=== PATIENT | female | born 1995 | race American Indian/Alaskan Native ===

== ENCOUNTER 2017-05-04 13:29 | Outpatient (CLI) | payer OTHER ==
[2017-05-04] MEDS ORDERED: LACTATED RINGERS 500 ML IV ONE (14:05)
[2017-05-04 14:06] VITALS: BP 115/74
[2017-05-04 14:48] LABS: Bilirubin,Urine NEG (Negative); Blood,Urine NEG (Negative); Color,Urine Straw (Yellow); Nitrite,Urine NEG (Negative); Protein,Urine <15 mg/dL mg/dL (Negative); Urobilinogen,Urine < 2.0 mg/dL (<2.0)
[2017-05-04 14:53] LABS: Amphetamine Screen,Urine PRESUMPTIVE NEGATIVE; Benzodiazepines Screen,Urine PRESUMPTIVE NEGATIVE; Cocaine Screen,Urine PRESUMPTIVE NEGATIVE; Methadone Screen,Urine PRESUMPTIVE NEGATIVE; Opiate Screen,Urine PRESUMPTIVE NEGATIVE
[2017-05-04 15:07] LABS: Cannabinoid Screen,Urine PRESUMPTIVE POSITIVE
--- NOTE | 2017-05-04 16:44 | Ultrasound Report ---
FINAL REPORT EXAM: US OB > = 14 WEEKS FETUS HISTORY: COMPLETE OB TECHNIQUE: Ultrasound obstetrical transabdominal PRIORS: No prior studies are submitted for comparison FINDINGS: Single live intrauterine gestation present cardiac activity is present with heart rate of 152 beats per minute The placenta is posterior and grade 1 Amniotic fluid volume is adequate amniotic fluid index 15.7 centimeters Following structures seen appear grossly unremarkable, cisterna magna, ventricles and cerebellum, stomach, kidneys, urinary bladder, diaphragm, four-chamber view of the heart, three-vessel cord and cord insert. biometric measurements were obtained Biparietal diameter 28 weeks 4 days Head circumference 27 weeks 6 days Abdominal circumference 27 weeks 5 days Femur length 27 weeks 2 days Based on today's exam estimated weight is 1103 grams Based on today's exam estimated gestational age 27 weeks 6 days with estimated date of delivery July 28, 2017 IMPRESSION:
== END 2017-05-04 17:03 | disposition home or self-care (01) ==
LOC: TRG 13:29
PROVIDERS: ATTEND Obstetrics & Gynecology
DX: O47.03 False labor before 37 completed weeks of gestation, third trimester (principal); Z3A.29 29 weeks gestation of pregnancy
CPT/HCPCS: 59025; 76805; 80307; 81001; 86850; 86900; 86901

== ENCOUNTER 2017-06-22 17:04 | Observation (INO) | payer OTHER ==
[2017-06-22] MEDS ORDERED: LACTATED RINGERS 1,000 ML IV ONE (17:45)
[2017-06-22] MEDS ORDERED: LACTATED RINGERS 1,000 ML ONE (17:47)
--- NOTE | 2017-06-22 18:41 | Ultrasound Report ---
FINAL REPORT PROCEDURE: US OB LIMITED TECHNIQUE: Real-time transabdominal sonography of the uterus, placenta, amniotic fluid, adnexa, and fetus was performed with image documentation. Targeted ultrasound for presentation, NEPTALI, and heart rate. CPT 76214 HISTORY: Deceleration. well being. COMPARISON: Ultrasound dated 05/04/2017. FINDINGS: LMP 10/12/2016. Clinical age: 36 weeks 1 day. EDC: 07/19/2017. GENERAL: IUP: Single living intrauterine . Position: Cephalic. Amniotic fluid volume: 11.8 cm. FETUS: Heart rate and rhythm: 129 BPM, Regular. anatomic survey: Not performed. IMPRESSION: Targeted ultrasound for presentation, NEPTALI, and heart rate. Cephalic presentation. Normal NEPTALI.
--- NOTE | 2017-06-22 18:43 | Ultrasound Report ---
FINAL REPORT PROCEDURE: US OB BPP WO NON-STRESS TECHNIQUE: Sonographic evaluation for breathing, movement, tone, and amniotic fluid volume was performed. CPT 36144 HISTORY: Deceleration, well being. COMPARISON: Targeted ultrasound dated same day and time. Obstetric ultrasound dated 05/04/2017. FINDINGS: LMP 10/12/2016. Clinical age: 36 weeks 1 day. EDC: 07/19/2017. GENERAL: IUP: Single living intrauterine . Position: Cephalic. Amniotic fluid volume: 11.8 cm. Amniotic fluid volume: Normal-score 2. At least one vertical pocket > 2 cm or more in vertical axis. breathing: Normal-score 2. movement: Normal-score 2. tone: Normal. Score: 8 of 8. IMPRESSION: Normal biophysical profile. Score 8/8.
--- NOTE | 2017-06-22 19:48 | History and Physical Report ---
<FAREED JACOB D - Last Filed: 06/23/17 07:55> History of Present Illness Date of admission: 06/22/17 20:42 Medications and Allergies Allergies Allergy/AdvReac Type Severity Reaction Status Date / Time Penicillins AdvReac Anaphylaxis Verified 06/22/17 20:48 Home Medications Medication Instructions Recorded Confirmed Last Taken Type Pnv,Calcium 72/Iron/Folic Acid 1 tab PO DAILY 05/04/17 06/22/17 06/22/17 History [Pnv Plus Multivit Tab] Active Meds: Active Medications Acetaminophen (Tylenol) 650 mg PO Q4H PRN PRN Reason: Pain MILD(1-3)/Fever >100.5/LYNCH Docusate Sodium (Colace) 100 mg PO Q12H PRN PRN Reason: Constipation Lactated Ringer's (Lactated Ringers) 1,000 mls @ 125 mls/hr IV DIRECT MARKEL Lactated Ringer's (Lactated Ringers) 1,000 mls @ 125 mls/hr IV DIRECT MARKEL Last Admin: 06/23/17 04:45 Dose: 125 mls/hr Magnesium Hydroxide (Milk Of Magnesia) 30 ml PO QHS PRN PRN Reason: Laxative Effect Multivitamins/Iron/Calcium ( Vitamin) 1 each PO QDAY MARKEL - Vital Signs Vital signs: Vital Signs Pulse BP 84 107/62 06/22/17 17:38 06/22/17 17:38 Temp Pulse Resp BP Pulse Ox 98.7 F 79 12 109/61 97 06/23/17 04:49 06/23/17 04:53 06/23/17 04:49 06/23/17 04:53 06/22/17 19:04 Results Result Diagrams: 06/22/17 18:50 Abnormal lab results 06/22/17 06/22/17 Range/Units 18:50 20:33 Pine % (Auto) 11.2 H (0.0-7.3) % Pine # 0.9 H (0.0-0.8) K/mm3 Seg Neutrophils % 72.6 H (40.0-70.0) % Urine pH 8.0 H (5.0-7.0) All other labs normal. Assessment and Plan Admit for obervation - Patient Problems (1) Insufficient care in third trimester Status: Acute (2) Marijuana smoker Status: Acute (3) Small for gestational age fetus Status: Acute <LUX ALAS - Last Filed: 06/23/17 12:15> History of Present Illness Date of examination: 06/22/17 History of present illness: Patient seen in office today of admission follow-up to complicated with intrauterine growth retardation and noncompliance with office visit and noncompliance with visits to the perinatologist. NST in office revealed decelerations the patient was admitted for evaluation including obtaining a biophysical profile Menstrual History Regularity: regular Menses every: 30 days Duration: 4 LMP: 10/26/2016 LMP reliability: definite test type: urine test Date: 04/03/2017 BC at conception: none Planned ? no EDC Calculations LMP: 08/02/2017 Past History : 2 Term Births: 0 Premature Births: 1 Living Children: 1 Para: 1 Mult. Births: 0 Prev : 0 Aborta: 0 Elect. Ab: 0 Spont. 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 No ETOH/Cigaretts Infection History Hx of STD: none HIV Risk Eval: no Hepatitis B Risk Eval: low risk Personal hx. of genital herpes: no Partner hx. of genital herpes: no Rash, Viral, or Febrile illness since last LMP? no Varicella/Chicken Pox Status: Immunized TB Risk: no Genetic History Congenital Heart Defect: Mom: no Dad: no Austyn Disease: Mom: no Dad: no Thalassemia Mom: no Dad: no Neural Tube Defect Mom: no Dad: no Down's Syndrome Mom: no Dad: no Ilya-Sachs Mom: no Dad: no Sickle Cell Disease/Trait Mom: no Dad: no Hemophilia Mom: no Dad: no Muscular Dystrophy Mom: no Dad: no Cystic Fibrosis Mom: no Dad: no [place] Chorea Mom: no Dad: no Mental Retardation Mom: no Dad: no Fragile X Mom: no Dad: no Other Genetic/Chromosomal Disorder Mom: no Dad: no Child w/other defect Mom: no Dad: no Enviromental Exposures Xray Exposure: no Medication, drug, or alcohol use since LMP: no Chemical/Other Exposure: no Exposure to Cat Liter: no Hx of Parvovirus (Fifth Disease): no Occupational Exposure to Children: none Active Medications (reviewed today): None Current Allergies (reviewed today): No known allergies Past History Past Medical History: other (see HPI) Past Surgical History: other (see HP) 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 (see HP) Family/Genetic History: other (see HP) Social history: other (see HP) - Obstetrical History Expected Date of Delivery: 07/19/17 Actual Gestation: 36 Week(s) 2 Day(s) : 2 Para: 1 Hx # Term Pregnancies: 0 Number of Pregnancies: 1 Spontaneous Abortions: 0 Induced : 0 Number of Living Children: 1 Medications and Allergies Active Meds: Active Medications Lactated Ringer's (Lactated Ringers) 1,000 mls @ 125 mls/hr IV DIRECT MARKEL - Vital Signs Vital signs: Vital Signs Pulse BP 84 107/62 06/22/17 17:38 06/22/17 17:38 Temp Pulse Resp BP Pulse Ox 98 H 107/59 97 06/22/17 19:04 06/22/17 18:37 06/22/17 19:04 - Physical Exam Breasts: Positive: deferred Lungs: Positive: Normal air movement Abdomen: Positive: normal appearance, soft Cervix: Positive: other (per RN) Results Result Diagrams: 06/22/17 18:50 All other labs normal. Assessment and Plan - Patient Problems (1) Abnormal test Status: Acute Plan to address problem: Abnormal NST in Office BPP 8/10 at hosptal. Observation patient did have a improving heart tracing with occasional variables. Due to the patient's history of noncompliance and history have been late deceleration, will observe her overnight reassessment. Also will move to delivery if patient some tracing indicates. (2) Insufficient care in third trimester Status: Acute (3) Marijuana smoker Status: Acute (4) Small for gestational age fetus Status: Acute
[2017-06-22] MEDS ORDERED: TYLENOL PO PRN (19:55)
[2017-06-22] MEDS ORDERED: MILK OF MAGNESIA PO PRN (19:55)
[2017-06-22] MEDS ORDERED: COLACE PO PRN (19:55)
[2017-06-22] MEDS ORDERED: LACTATED RINGERS 1,000 ML IV SCH (20:00)
[2017-06-22 20:07] LABS: Basophils % (Auto) 0.3 % (0.0-1.8); Eosinophils % (Auto) 0.4 % (0.0-4.3); Hematocrit 34.5 % (30.3-42.9); Hemoglobin 11.6 gm/dl (10.1-14.3); Lymphocytes # (Auto) 1.3 K/mm3 (1.2-5.4); Lymphocytes % (Auto) 15.5 % (13.4-35.0); Mean Corpuscular HGB Conc 34 % (30-34); Mean Corpuscular Hemoglobin 29 pg (28-32); Mean Corpuscular Volume 87 fl (79-97); Monocytes # (Auto) 0.9 K/mm3 (0.0-0.8); Monocytes % (Auto) 11.2 % (0.0-7.3); Platelet Count 167 K/mm3 (140-440); Red Blood Count 3.98 M/mm3 (3.65-5.03); Red Cell Distribution Width 14.3 % (13.2-15.2)
[2017-06-22] MEDS: LACTATED RINGERS 1,000 ML IV SCH (20:30)
[2017-06-22 21:05] LABS: Bilirubin,Urine NEG (Negative); Blood,Urine NEG (Negative); Nitrite,Urine NEG (Negative); Protein,Urine <15 mg/dL mg/dL (Negative); Urobilinogen,Urine < 2.0 mg/dL (<2.0)
[2017-06-22 21:06] LABS: Color,Urine Straw (Yellow)
[2017-06-22 21:31] LABS: Amphetamine Screen,Urine PRESUMPTIVE NEGATIVE; Benzodiazepines Screen,Urine PRESUMPTIVE NEGATIVE; Cannabinoid Screen,Urine PRESUMPTIVE NEGATIVE; Cocaine Screen,Urine PRESUMPTIVE NEGATIVE; Methadone Screen,Urine PRESUMPTIVE NEGATIVE; Opiate Screen,Urine PRESUMPTIVE NEGATIVE
[2017-06-23] MEDS: LACTATED RINGERS 1,000 ML IV SCH (04:45)
--- NOTE | 2017-06-23 07:54 | Discharge Summary ---
Providers - Providers Date of Admission: 06/22/17 20:42 Attending physician: LUX ALAS 06/22/17 19:55 Consult to Physician [CONS] Routine Consulting Provider: BEBE DUFFY Reason For Exam: IUGR Place consult to:: [facility] Primary care physician: LUX ALAS Hospitalization Hospital course: This is a 21-year-old female who presented from the office for further evaluation due to variable decelerations during NST. Hospital course unremarkable BPP is 10 out of 10 patient has had no cervical change since admission. Will allow home patient was instructed to call medicate transportation order to arrange transportation to her perinatology appointments. Condition at discharge: Good Disposition: DC-01 TO HOME OR SELFCARE - Discharge Diagnoses (1) Insufficient care in third trimester Status: Acute (2) Marijuana smoker Status: Acute (3) Small for gestational age fetus Status: Acute Plan - Provider Discharge Summary Activity: routine Additional instructions: [] Smoking cessation referral if applicable(refer to patient education folder for contact #) [] Refer to [facility]'s [facility] Booklet Call your doctor immediately for: * Fever > 100.5 * Heavy vaginal bleeding ( >1 pad per hour) * Severe persistent headache * Shortness of breath * Reddened, hot, painful area to leg or breast * Drainage or odor from incision. * Keep incision clean and dry at all times and follow doctor's instructions regarding bathing/showering - Follow up plan Follow up: LUX ALAS MD [Primary Care Provider] - 7 Days
[2017-06-23 07:55] VITALS: BP 101/56
[2017-06-23] MEDS ORDERED: PRENATAL VITAMIN PO SCH (10:00)
== END 2017-06-23 09:00 | disposition home or self-care (01) ==
LOC: TRG 17:04 → LD 20:42
PROVIDERS: ADMIT Obstetrics & Gynecology; ATTEND Obstetrics & Gynecology
DX: O60.03 Preterm labor without delivery, third trimester (principal); O36.5930 Maternal care for other known or suspected poor fetal growth, third trimester, not applicable or unspecified; O99.323 Drug use complicating pregnancy, third trimester; F11.90 Opioid use, unspecified, uncomplicated; Z3A.36 36 weeks gestation of pregnancy
CPT/HCPCS: 36415; 76815; 76819; 80307; 81001; 85025; 86592; 86850; 86900; 86901; 96360; 96361; G0378; J7120

== ENCOUNTER 2017-06-29 14:51 | Inpatient (IN) | payer OTHER ==
[2017-06-29] MEDS ORDERED: ePHEDrine SULFATE IV PRN (15:53)
[2017-06-29] MEDS ORDERED: MINERAL OIL PO PRN (15:53)
[2017-06-29] MEDS ORDERED: SUBLIMAZE IV PRN ×2 (15:53→17:00)
[2017-06-29] MEDS ORDERED: ZOFRAN IV PRN (15:53)
[2017-06-29] MEDS ORDERED: BRETHINE SUB-Q PRN (15:53)
[2017-06-29] MEDS ORDERED: XYLOCAINE 2% INFILTRATI ONE (15:53)
[2017-06-29] MEDS ORDERED: PITOCin/NS 20 UNIT/1000ML DRIP 20 UNITS/1,000 ML BAG IV SCH (16:00)
[2017-06-29] MEDS ORDERED: PITOCin/NS 30 UNIT/500ML 30 UNITS/500 ML BAG IV SCH (16:00)
[2017-06-29] MEDS ORDERED: LACTATED RINGERS 1,000 ML IV SCH (16:00)
--- NOTE | 2017-06-29 16:00 | History and Physical Report ---
History of Present Illness Date of examination: 06/29/17 (pt presents in active labor) History of present illness: Past History : 2 Term Births: 0 Premature Births: 1 Living Children: 1 Para: 1 Mult. Births: 0 Prev : 0 Aborta: 0 Elect. Ab: 0 Spont. 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 No ETOH/Cigaretts Infection History Hx of STD: none HIV Risk Eval: no Hepatitis B Risk Eval: low risk Personal hx. of genital herpes: no Partner hx. of genital herpes: no Rash, Viral, or Febrile illness since last LMP? no Varicella/Chicken Pox Status: Immunized TB Risk: no Genetic History Congenital Heart Defect: Mom: no Dad: no Austyn Disease: Mom: no Dad: no Thalassemia Mom: no Dad: no Neural Tube Defect Mom: no Dad: no Down's Syndrome Mom: no Dad: no Ilya-Sachs Mom: no Dad: no Sickle Cell Disease/Trait Mom: no Dad: no Hemophilia Mom: no Dad: no Muscular Dystrophy Mom: no Dad: no Cystic Fibrosis Mom: no Dad: no [place] Chorea Mom: no Dad: no Mental Retardation Mom: no Dad: no Fragile X Mom: no Dad: no Other Genetic/Chromosomal Disorder Mom: no Dad: no Child w/other defect Mom: no Dad: no Enviromental Exposures Xray Exposure: no Medication, drug, or alcohol use since LMP: no Chemical/Other Exposure: no Exposure to Cat Liter: no Hx of Parvovirus (Fifth Disease): no Occupational Exposure to Children: none Active Medications (reviewed today): None Current Allergies (reviewed today): No known allergies Laboratory Results Urine HCG: positive Review of Systems General Denies fever, chills, sweats, anorexia, fatigue, weakness, malaise, weight loss and sleep disorder. Denies nausea, vomiting, headache, swelling of legs, abdominal pain, vaginal discharge, vaginal bleeding and contractions. Denies vaginal discharge, incontinence, dysuria, hematuria, urinary frequency, amenorrhea, menorrhagia, abnormal vaginal bleeding, pelvic pain, genital sores, decreased libido, painful periods, painful sex, urinary urgency, hot flashes, vaginal dryness, vaginal itching and vaginal odor. CV Denies chest pains, palpitations, syncope, dyspnea on exertion, orthopnea, PND and peripheral edema. Resp Denies cough, dyspnea at rest, excessive sputum, hemoptysis, wheezing and pleurisy. GI Denies nausea, vomiting, diarrhea, constipation, change in bowel habits, abdominal pain, melena, hematochezia, jaundice, gas/bloating, indigestion/ heartburn, dysphagia and odynophagia. Endo Denies cold intolerance, heat intolerance, polydipsia, polyphagia, polyuria and unusual weight change. Breast Denies left breast lump, right breast lump, nipple discharge, bloody discharge from nipple, breast pain, abnormal mammogram and breast enlargement. MS Denies back pain, joint pain, joint swelling, muscle cramps, muscle weakness, stiffness, arthritis, sciatica, restless legs, leg pain at night and leg pain with exertion. Derm Denies rash, itching, dryness and suspicious lesions. Neuro Denies paralysis, paresthesias, headache, seizures, tremors, vertigo, transient blindness, frequent falls, frequent headaches and difficulty walking. Psych Denies depression, anxiety, irritability and mood swings. Eyes Denies blurring, diplopia, irritation, discharge, vision loss, eye pain and photophobia. ENT Denies earache, ear discharge, tinnitus, decreased hearing, nasal congestion, nosebleeds, sore throat and hoarseness. Allergy Denies urticaria, allergic rash, hay fever and recurrent infections. Heme Denies abnormal bruising, bleeding and enlarged lymph nodes. 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 % Family History Risk Factors: Family History of CT in females < 65 years old: no Family History of CT in males < 55 years old: no Dietary Counseling: pn yes PHYSICAL EXAM HEENT: PERRLA, normal conjunctiva, external nose and nasal mucosa normal, oropharynx clear Neck/Thyroid: supple, thyroid normal Skin no significant abnormal lesions or rashes Chest: respiratory effort normal, clear to auscultation Breasts: normal without skin changes or masses CV: regular, normal S1-S2, no murmur, no rub, no gallop Abdomen: normal bowel sounds, soft, nontender, no HSM Musculoskeletal: grossly normal ROM in joints, no joint tenderness or muscle weakness Neuro: grossly normal DTRs, sensation, strength, cranial nerves Extremities: no clubbing, cyanosis, or edema [employer] Exams Fundal Ht: 24w size: AGA Presentation: vertex FHT: + activity: + Past History - Obstetrical History Expected Date of Delivery: 07/19/17 Actual Gestation: 37 Week(s) 1 Day(s) : 2 Para: 1 Number of Pregnancies: 1 Number of Living Children: 1 Medications and Allergies Allergies Allergy/AdvReac Type Severity Reaction Status Date / Time Penicillins AdvReac Severe Anaphylaxis Verified 06/29/17 15:18 Home Medications Medication Instructions Recorded Confirmed Last Taken Type Pnv,Calcium 72/Iron/Folic Acid 1 tab PO DAILY 05/04/17 06/22/17 06/22/17 History [Pnv Plus Multivit Tab] - Vital Signs Vital signs: Vital Signs Pulse Pulse Ox 104 H 97 06/29/17 15:18 06/29/17 15:18 Temp Pulse Resp BP Pulse Ox 97.2 F L 112 H 20 105/63 99 06/29/17 15:19 06/29/17 15:53 06/29/17 15:19 06/29/17 15:23 06/29/17 15:53 - Physical Exam Breasts: Positive: deferred Cardiovascular: Regular rate, Normal S1, Normal S2 Lungs: Positive: Clear to auscultation, Normal air movement Abdomen: Positive: normal appearance, soft, normal bowel sounds. Negative: distention, tenderness Genitourinary (Female): Positive: normal external genitalia, normal perenium Vulva: both: normal Vagina: Positive: normal moisture. Negative: discharge Cervix: Negative: lesion, discharge Uterus: Positive: normal size, normal contour Adnexa: both: normal Anus/Rectum: Positive: normal perianal skin, heme negative. Negative: rectal mass, hemorrhoids Extremities: Positive: normal Deep Tendon Reflex Grade: Normal +2 - Obstetrical FHR: category 1 Uterine Contraction Monitor Mode: External Cervical Dilatation: 6 Cervical Effacement Percentage: 100 station: -1 Uterine Contraction Pattern: Regular Uterine Tone Measurement Phase: Resting Uterine Contraction Intensity: Moderate Results All other labs normal. PAP Screening: Last PAP smear: 12/15/2016 PAP Smear Results: Date of Exam: 12/15/2016 Results: Normal, Satisfactory PAP Smear Comments: +HPV Next PAP Due: 12/15/2017 Current OB Labs Blood Type: B (01/05/2017) Rh Type: positive (01/05/2017) Rh Antibody Screen: negative (01/05/2017) Hgb: 12.3 (01/05/2017) Hct: 35.7 (01/05/2017) Rubella: immune (01/05/2017) RPR: nonreactive (01/05/2017) Hep B Surface Antigen: negative (01/05/2017) HIV: negative (01/05/2017) Urine Culture: negative (12/15/2016) Assessment and Plan 21 yo @ 37 weeks with known IUGR. Active labor 6cm on arrival GBS negative Orders in EMR Anticipate delivery.
[2017-06-29 16:24] LABS: Hematocrit 35.7 % (30.3-42.9); Hemoglobin 11.9 gm/dl (10.1-14.3); Mean Corpuscular HGB Conc 33 % (30-34); Mean Corpuscular Hemoglobin 29 pg (28-32); Mean Corpuscular Volume 86 fl (79-97); Platelet Count 135 K/mm3 (140-440); Red Blood Count 4.15 M/mm3 (3.65-5.03); Red Cell Distribution Width 14.7 % (13.2-15.2)
[2017-06-29] MEDS ORDERED: BENADRYL PO PRN (17:35)
[2017-06-29] MEDS ORDERED: PHENERGAN PR PRN (17:35)
[2017-06-29] MEDS ORDERED: TUCKS PAD TP PRN (17:35)
[2017-06-29] MEDS ORDERED: TORADOL IV PRN (17:35)
[2017-06-29] MEDS ORDERED: MILK OF MAGNESIA PO PRN (17:35)
[2017-06-29] MEDS ORDERED: LANSINOH TP PRN (17:35)
[2017-06-29] MEDS ORDERED: PHENERGAN PO PRN (17:35)
[2017-06-29] MEDS ORDERED: DULCOLAX PR PRN (17:35)
[2017-06-29] MEDS ORDERED: TYLENOL PO PRN (17:35)
--- NOTE | 2017-06-29 17:48 | Procedure Note ---
OB Delivery Note - Delivery Date of Delivery: 06/29/17 Pay Agent: LILIANA CAGLE Estimated blood loss: 300cc - Vaginal Delivery presentation: vertex Delivery position: OA Intrapartum events: other(please specify) (limited PNC; marijuana use; IUGR) Delivery induction: none Delivery augmentation: rupture of membranes (SROM clear Just prior to delivery) Delivery monitor: external FHT, external uterine Route of delivery: Delivery placenta: spontaneous Delivery cord: nuchal cord, 3 umbilical vessels Episiotomy: none Delivery laceration: none Anesthesia: none Delivery comments: live born male over intact perineum CAN X 1 del through Baby skin to skin Placenta and membrane del complete and intact, 3 vessel cord. Pit IVFs 8 /9, EBL 300, Wgt 5-3. mom and baby remain LDR stable. - A at 1 minute: 8 at 5 minutes: 9 Gender: Male (wgt 5-3)
[2017-06-29] MEDS ORDERED: SODIUM CHLORIDE FLUSH SYRINGE 10 ML IV NR (18:00)
[2017-06-29 18:21] LABS: Amphetamine Screen,Urine PRESUMPTIVE NEGATIVE; Benzodiazepines Screen,Urine PRESUMPTIVE NEGATIVE; Cannabinoid Screen,Urine PRESUMPTIVE NEGATIVE; Cocaine Screen,Urine PRESUMPTIVE NEGATIVE; Methadone Screen,Urine PRESUMPTIVE NEGATIVE; Opiate Screen,Urine PRESUMPTIVE NEGATIVE
[2017-06-30] MEDS: MOTRIN PO SCH ×4 (00:14→17:04)
[2017-06-30 04:42] LABS: Hematocrit 33.5 % (30.3-42.9); Hemoglobin 11.2 gm/dl (10.1-14.3)
[2017-06-30] MEDS ORDERED: M-M-R II VACCINE SUB-Q ONE (06:00)
[2017-06-30] MEDS ORDERED: BOOSTRIX IM ONE (06:00)
--- NOTE | 2017-06-30 08:20 | Progress Note ---
Assessment and Plan - Patient Problems (1) Spontaneous vaginal delivery Current Visit: Yes Status: Acute Plan to address problem: -routine pp care -d/c home this pm Subjective - Subjective Date of service: 06/30/17 Principal diagnosis: PPD #1 s/p Interval history: Pt doing well. Desires d/c home today. Patient reports: appetite normal, voiding normally, pain well controlled [place]: doing well, bottle feeding Objective - Vital Signs Latest vital signs: Vital Signs Temp Pulse Resp BP BP Pulse Ox 06/30/17 06:31 16 06/30/17 05:45 16 06/30/17 01:14 16 06/30/17 00:45 98.4 F 74 20 117/65 95 06/30/17 00:14 18 06/29/17 20:40 98.2 F 83 20 114/68 100 06/29/17 18:33 114 H 126/76 06/29/17 18:02 110 H 121/74 06/29/17 17:47 113 H 128/75 06/29/17 17:11 111 H 97 06/29/17 15:53 112 H 99 06/29/17 15:48 103 H 99 06/29/17 15:43 109 H 95 06/29/17 15:38 98 H 99 06/29/17 15:33 110 H 99 06/29/17 15:28 116 H 99 06/29/17 15:23 85 105/63 97 06/29/17 15:19 97.2 F L 85 20 105/63 97 06/29/17 15:18 104 H 97 Intake and Output 06/29/17 06/30/17 06/30/17 22:59 06:59 14:59 Intake Total 240 360 Output Total 600 400 Balance -360 -40 Intake: Oral 240 360 Output: Urine 600 400 Void 600 400 Other: Total, Intake Amount 240 240 Total, Output Amount 600 400 # Voids Void 1 Weight 51.256 kg Estimated Blood Loss 300 - Exam Lungs: Present: Normal air movement Abdomen: Present: normal appearance, soft. Absent: distention, tenderness, guarding Uterus: Present: normal, firm, fundal height below umbilicus. Absent: tenderness Extremities: Present: normal. Absent: tenderness, edema - Labs Labs: Abnormal lab results 06/29/17 Range/Units 16:03 Plt Count 135 L (140-440) K/mm3
--- NOTE | 2017-06-30 08:22 | Discharge Summary ---
Providers - Providers Date of Admission: 06/29/17 16:21 Date of discharge: 06/30/17 Attending physician: FAREED JACOB Primary care physician: LUX ALAS Hospitalization Reason for admission: active labor Delivery: Episiotomy: none Laceration: none Other procedures: none [place] baby: male Hospital course: Pt presented in active labor and had a normal vaginal delivery. Pt has had routine pp care that has not been complicated. Pt desires d/c home today. Condition at discharge: Good Disposition: DC-01 TO HOME OR SELFCARE - Discharge Diagnoses (1) Spontaneous vaginal delivery Status: Acute Plan - Discharge Medications Prescriptions: Ibuprofen [Motrin 800 MG tab] 800 mg PO TID PRN #30 tablet PRN Reason: Pain Lidocain2.5%/Prilocai2.5% [Emla] 5 gm TP PRN #1 tube - Provider Discharge Summary Activity: routine, no sex for 6 weeks, no heavy lifting 4 weeks Diet: routine Instructions: routine Additional instructions: [] Smoking cessation referral if applicable(refer to patient education folder for contact #) [] Refer to [facility] Booklet Call your doctor immediately for: * Fever > 100.5 * Heavy vaginal bleeding ( >1 pad per hour) * Severe persistent headache * Shortness of breath * Reddened, hot, painful area to leg or breast * Drainage or odor from incision. * Keep incision clean and dry at all times and follow doctor's instructions regarding bathing/showering - Follow up plan Follow up: LUX ALAS MD [Primary Care Provider] - 7 Days
[2017-07-01] MEDS: MOTRIN PO SCH (12:06)
[2017-07-01 17:04] VITALS: BP 109/71
== END 2017-07-01 15:20 | disposition home or self-care (01) | DRG 775 ==
LOC: TRG 14:51 → LD 16:21 → OB 19:35
PROVIDERS: ADMIT Obstetrics & Gynecology; ATTEND Obstetrics & Gynecology
PROC: 10E0XZZ Delivery of Products of Conception, External Approach (ICD-10-PCS; principal; 2017-06-29)
PROC: 3E0234Z Introduction of Serum, Toxoid and Vaccine into Muscle, Percutaneous Approach (ICD-10-PCS; 2017-06-30)
DX: O69.81X0 Labor and delivery complicated by cord around neck, without compression, not applicable or unspecified (principal); Z90.89 Acquired absence of other organs; Z88.0 Allergy status to penicillin; Z3A.37 37 weeks gestation of pregnancy; Z37.0 Single live birth; Z23 Encounter for immunization; O36.5930 Maternal care for other known or suspected poor fetal growth, third trimester, not applicable or unspecified; O99.324 Drug use complicating childbirth; F12.90 Cannabis use, unspecified, uncomplicated
CPT/HCPCS: 36415; 80307; 85014; 85018; 85027; 86592; 86850; 86900; 86901; 88307; J2590; J3010; J7120

== ENCOUNTER 2018-12-18 16:19 | Outpatient (CLI) | payer OTHER ==
[2018-12-18 16:46] VITALS: BP 120/73
== END 2018-12-18 17:51 | disposition home or self-care (01) ==
LOC: TRG 16:19
PROVIDERS: ATTEND Obstetrics & Gynecology
DX: O47.1 False labor at or after 37 completed weeks of gestation (principal); Z3A.39 39 weeks gestation of pregnancy
CPT/HCPCS: 59025

== ENCOUNTER 2018-12-20 18:39 | Inpatient (IN) | payer OTHER ==
[2018-12-20] MEDS ORDERED: LACTATED RINGERS 1,000 ML ONE (21:09)
[2018-12-20] MEDS ORDERED: ZOFRAN IV PRN (21:10)
[2018-12-20] MEDS ORDERED: MINERAL OIL PO PRN (21:10)
[2018-12-20] MEDS ORDERED: BRETHINE IVP PRN (21:10)
[2018-12-20] MEDS ORDERED: BRETHINE SUB-Q PRN (21:10)
[2018-12-20] MEDS ORDERED: XYLOCAINE 2% INFILTRATI ONE (21:10)
--- NOTE | 2018-12-20 21:21 | History and Physical Report ---
History of Present Illness Date of examination: 12/20/18 Date of admission: 12/20/2018 Chief complaint: contractions History of present illness: Menstrual History LMP: 03/22/2018 LMP reliability: definite LMP character: normal test type: urine test Date: 06/28/2018 BC at conception: BCP Planned ? no EDC Calculations LMP: 12/27/2018 EDC Confirmation: 12/27/2018 Gestational Age: 14 6/7 weeks Past History : 3 Term Births: 1 Premature Births: 1 Living Children: 2 Para: 1 Mult. Births: 0 Prev : 0 Prev. attempt? 0 Aborta: 0 Elect. Ab: 0 Spont. Ab: 0 Ectopics: 0 # 1 Delivery date: 2014 Weeks Gestation: 35 labor: yes Delivery type: Delivery location[place] [facility] [place] Sex: Male weight: 4#8 Comments: labor # 2 Delivery date: 06/29/2017 Weeks Gestation: 37 Delivery type: Vaginal Anesthesia type: none Delivery location: [facility] Infant Sex: male weight: 5.19 Comments: IUGR; HX drug use Past Medical History: Reviewed history from 04/03/2017 and no changes required: Negative Past Medical History Past Surgical History: Reviewed history from 04/03/2017 and no changes required: Tonsillectomy 2008 Past Medical History 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 of genital herpes: no Partner hx. of genital herpes: no Rash, Viral, or Febrile illness since last LMP? no Varicella/Chicken Pox Status: Immunized Genetic History Congenital Heart Defect: Mom: no Dad: no Austyn Disease: Mom: no Dad: no Thalassemia Mom: no Dad: no Neural Tube Defect Mom: no Dad: no Down's Syndrome Mom: no Dad: no Ilya-Sachs Mom: no Dad: no Sickle Cell Disease/Trait Mom: no Dad: no Hemophilia Mom: no Dad: no Muscular Dystrophy Mom: no Dad: no Cystic Fibrosis Mom: no Dad: no Owsley Chorea Mom: no Dad: no Mental Retardation Mom: no Dad: no Fragile X Mom: no Dad: no Other Genetic/Chromosomal Disorder Mom: no Dad: no Child w/other defect Mom: no Dad: no Enviromental Exposures Enviromental Exposures Reviewed Xray Exposure: no Medication, drug, or alcohol use since LMP: no Chemical/Other Exposure: no Exposure to Cat Liter: no Hx of Parvovirus (Fifth Disease): no Occupational Exposure to Children: none Current Allergies (reviewed today): * PENICILLAN (Mild) Past History Past Medical History: other (see H&P) Past Surgical History: other (see H&P) [employer]IST History: other (see H&P) Family/Genetic History: other (see H&P) Social history: other (see H&P) - Obstetrical History Expected Date of Delivery: 12/27/18 Actual Gestation: 39 Week(s) 0 Day(s) : 3 Para: 2 Hx # Term Pregnancies: 1 Number of Pregnancies: 1 Spontaneous Abortions: 0 Induced : 0 Number of Living Children: 2 Medications and Allergies Allergies Allergy/AdvReac Type Severity Reaction Status Date / Time Penicillins AdvReac Severe Anaphylaxis Verified 12/20/18 19:29 Home Medications Medication Instructions Recorded Confirmed Last Taken Type Pnv,Calcium 72/Iron/Folic Acid 1 tab PO DAILY 05/04/17 12/20/18 12/20/18 History [Pnv Plus Multivit Tab] Review of Systems All systems: negative Genitourinary: contractions, no vaginal bleeding, no leakage of fluid - Vital Signs Vital signs: Vital Signs Temp Pulse Resp BP 99.3 F 80 18 123/82 12/20/18 19:21 12/20/18 19:21 12/20/18 19:21 12/20/18 19:21 Temp Pulse Resp BP Pulse Ox 99.3 F 95 H 18 126/69 12/20/18 19:21 12/20/18 21:05 12/20/18 19:21 12/20/18 21:05 - Physical Exam Cardiovascular: Regular rate, Normal S1, Normal S2 Lungs: Positive: Clear to auscultation, Normal air movement Abdomen: Positive: normal appearance, soft, normal bowel sounds. Negative: distention, tenderness Genitourinary (Female): Positive: normal external genitalia, normal perenium Vulva: both: normal Vagina: Positive: normal moisture. Negative: discharge Cervix: Negative: lesion, discharge Uterus: Positive: normal size, normal contour Adnexa: both: normal Anus/Rectum: Positive: heme negative. Negative: rectal mass, hemorrhoids Extremities: Positive: normal Deep Tendon Reflex Grade: Normal +2 - Obstetrical FHR: auscultation normal Uterine Contraction Monitor Mode: External Cervical Dilatation: 5.5 Cervical Effacement Percentage: 80 station: -1 Uterine Contraction Frequency (min): 2-4 Uterine Contraction Duration: 60-80 Uterine Contraction Pattern: Regular Uterine Tone Measurement Phase: Contraction Uterine Contraction Intensity: Strong/Firm Results All other labs normal. Assessment and Plan 23 y.o. IUP at 39 weeks presents to triage for contractions. She reports the contractions have become more painful since walking over the last hour. SVE on arrival per can dragger 5/70/-2, now 5-6/80/-1, cervix able to be stretched to 6.5, vertex, BBOW. Patient admitted for labor, routine admission orders in EMR. GBS is negative. Patient desires epidural. Will initiate bolus at this time and plan for AROM once pt is comfortable. Dr. Shin aware of pt admission and assessment. Anticipate .
[2018-12-20 21:45] LABS: Hematocrit 30.1 % (30.3-42.9); Hemoglobin 10.1 gm/dl (10.1-14.3); Mean Corpuscular HGB Conc 34 % (30-34); Mean Corpuscular Volume 77 fl (79-97); Platelet Count 124 K/mm3 (140-440)
[2018-12-20] MEDS ORDERED: LACTATED RINGERS 1,000 ML IV SCH (22:00)
[2018-12-20] MEDS ORDERED: PITOCin/NS 20 UNIT/1000ML DRIP 20 UNITS/1,000 ML BAG IV SCH (22:00)
[2018-12-20] MEDS ORDERED: SUBLIMAZE ONE (22:40)
[2018-12-20] MEDS ORDERED: MARCAINE 0.25% INFILTRATI ONE (22:40)
--- NOTE | 2018-12-20 22:58 | Anesthesia Consultation ---
Anesthesia Consult and Med Hx Date of service: 12/20/18 - Airway Anesthetic Teeth Evaluation: Good ROM Head & Neck: Adequate Mental/Hyoid Distance: Adequate Mallampati Class: Class II Intubation Access Assessment: Good - Pulmonary Exam CTA: Yes - Cardiac Exam Cardiac Exam: RRR - Pre-Operative Health Status ASA Pre-Surgery Classification: ASA2, Emergency Proposed Anesthetic Plan: Epidural - Pulmonary Hx Asthma: No COPD: No Hx Pneumonia: No - Cardiovascular System Hx Hypertension: No - Central Nervous System Hx Seizures: No Hx Psychiatric Problems: No - Endocrine Hx Renal Disease: No Hx End Stage Renal Disease: No Hx Hypothyroidism: No Hx Hyperthyroidism: No - Hematic Hx Anemia: No Hx Sickle Cell Disease: No - Other Systems Hx Alcohol Use: No
[2018-12-20] MEDS ORDERED: NARCAN 2 MG/2 ML IV PRN (23:05)
--- NOTE | 2018-12-20 23:29 | Event Note ---
Date: 12/20/18 Patient reports being comfortable s/p epidural. She reports abdominal pain is gone, can still feel some rectal pressure with contractions. SVE 7/90/0. DWP pros/cons of AROM, she agrees to proceed- moderate amount of clear fluid noted. Late decelerations noted, corrected with position change. VSSAF. Will continue to monitor.
[2018-12-20] MEDS ORDERED: fentaNYL-BUPIV 2 MCG/ML-0.125% 200 MCG/100 ML BAG EPIDURAL SCH (23:45)
--- NOTE | 2018-12-21 01:11 | Procedure Note ---
OB Delivery Note - Delivery Date of Delivery: 12/21/18 Natural Science Manager: BRUCE XAVIER Estimated blood loss: 200cc - Vaginal Delivery presentation: vertex Delivery position: OA Intrapartum events: none Delivery induction: none Delivery augmentation: rupture of membranes Delivery monitor: external FHT, external uterine Route of delivery: Delivery placenta: spontaneous Delivery cord: 3 umbilical vessels Episiotomy: none Delivery laceration: none Anesthesia: epidural Delivery comments: of viable male infant over intact perineum. placed skin to skin on maternal abdomen. Drying and tactile stimulation produces vigorous cry. Cord clamped x2 upon cessation of pulsation and cut by FOC. Placenta delivered complete and intact, 3vc. Pitocin to IV. Fundus is firm, ML. VB is small. EBL 200. Pericare provided. VSSAF. apgars 8/9, weight 6#9. Infant placed skin to skin with mother, breast feeding initiated. Both remain LDR stable. - Infant A at 1 minute: 8 at 5 minutes: 9 Gender: Male (6#9)
[2018-12-21] MEDS ORDERED: LANSINOH TP PRN (02:20)
[2018-12-21] MEDS ORDERED: TYLENOL PO PRN (02:20)
[2018-12-21] MEDS ORDERED: BENADRYL PO PRN (02:20)
[2018-12-21] MEDS ORDERED: ZOFRAN IV PRN (02:20)
[2018-12-21] MEDS ORDERED: DULCOLAX PR PRN (02:20)
[2018-12-21] MEDS ORDERED: PITOCin/NS 20 UNIT/1000ML DRIP 20 UNITS/1,000 ML BAG IV SCH (02:20)
[2018-12-21] MEDS ORDERED: PHENERGAN PR PRN (02:20)
[2018-12-21] MEDS ORDERED: SODIUM CHLORIDE FLUSH SYRINGE 10 ML IV NR (02:20)
[2018-12-21] MEDS ORDERED: PHENERGAN PO PRN (02:20)
[2018-12-21] MEDS ORDERED: TUCKS PAD TP PRN (02:20)
[2018-12-21] MEDS ORDERED: MILK OF MAGNESIA PO PRN (02:20)
[2018-12-21] MEDS: IBUPROFEN PO SCH ×4 (03:45→19:34)
--- NOTE | 2018-12-21 06:58 | Post Anesthesia Evaluation ---
- Post Anesthesia Evaluation Patient Participated: Yes Airway Patent: Yes Stable Respiratory Function: Yes Nausea/Vomiting: No Temp > 96.8F: Yes Pain Manageable: Yes Adequeate Hydration: Yes Anesthesia Complications: No Block Receding Appropriately: Yes Patient on Ventilator: No
--- NOTE | 2018-12-21 08:30 | Event Note ---
Date: 12/21/18 patient resting <12hrs post delivery, no complaints. Lochia scant, fundus firm, bottle feeding infant. VSSAF. no s/s anemia. Continue pathway.
[2018-12-21] MEDS: PRENATAL VITAMIN PO SCH (09:43)
[2018-12-21 13:33] LABS: Hemoglobin 10.5 gm/dl (10.1-14.3)
[2018-12-22] MEDS: IBUPROFEN PO SCH ×4 (01:16→18:46)
[2018-12-22] MEDS ORDERED: BOOSTRIX IM ONE (06:00)
--- NOTE | 2018-12-22 08:13 | Discharge Summary ---
Providers - Providers Date of Admission: 12/20/18 21:47 Date of discharge: 12/22/18 (patient desires discharge today) Attending physician: FAREED JACOB Primary care physician: FAREED JACOB Hospitalization Reason for admission: labor Condition: Good Pertinent studies: psot delivery H&H . Procedures: Hospital course: uncomplicated delivery and course Disposition: DC-01 TO HOME OR SELFCARE Core Measure Documentation - Palliative Care Palliative Care/ Comfort Measures: Not Applicable - Core Measures Any of the following diagnoses?: none Exam - Constitutional Vitals: Temp Pulse Resp BP Pulse Ox 98.3 F 82 18 118/76 95 12/22/18 01:13 12/22/18 01:13 12/22/18 01:16 12/22/18 01:13 12/22/18 01:13 General appearance: Present: no acute distress, well-nourished - EENT Eyes: Present: PERRL ENT: hearing intact, clear oral mucosa - Neck Neck: Present: supple, normal ROM - Respiratory Respiratory effort: normal Respiratory: bilateral: CTA - Cardiovascular Heart Sounds: Present: S1 & S2. Absent: rub, click - Extremities Extremities: pulses symmetrical, No edema Peripheral Pulses: within normal limits - Abdominal General gastrointestinal: Present: soft, non-tender, non-distended, normal bowel sounds Female genitourinary: Present: normal - Integumentary Integumentary: Present: clear, warm, dry - Musculoskeletal Musculoskeletal: gait normal, strength equal bilaterally - Psychiatric Psychiatric: appropriate mood/affect, intact judgment & insight - Neurologic Neurologic: CNII-XII intact, moves all extremities - Additional findings Additional findings: Patient resting in bed holding infant. She reports being comfortable, denies any complaints or concerns. Fundus firm, ML, u/2. Vaginal bleeding is small, patient denies any heavy bleeding or clots. She reports abdominal cramping comes and goes but relieved with medications. Pt is formula feeding. reports breasts feel well, denies any complaints. VSSAF. reviewed post delivery labs with pt. she denies any dizziness or feeling faint with ambulation or position changes. encouraged increased water intake and continued ambulation. danger s/s to report after discharge reviewed. plan to d/c home today per pt request Plan Activity: no restrictions Diet: regular Follow up with: BRUCE XAVIER CNM [Advanced Practice Nurse] - 01/18/19 (Congratulations! Please call [phone] to schedule your appointment in 4 weeks. Call to schedule your son's circumcision appointment in 1 week. Bring EMLA cream prescription with you to his appointment and await further instructions for use. Call with any questions or concerns. ) Prescriptions: Lidocain2.5%/Prilocai2.5% [Emla] 5 gm TP ONCE #1 tube
[2018-12-22] MEDS: PRENATAL VITAMIN PO SCH (10:41)
[2018-12-22 18:23] VITALS: BP 136/92
== END 2018-12-22 16:30 | disposition home or self-care (01) | DRG 775 ==
LOC: TRG 18:39 → LD 21:47 → TRG 21:47 → OB 12-21 03:17
PROVIDERS: ADMIT Obstetrics & Gynecology; ATTEND Obstetrics & Gynecology
PROC: 10E0XZZ Delivery of Products of Conception, External Approach (ICD-10-PCS; principal; 2018-12-21)
PROC: 10907ZC Drainage of Amniotic Fluid, Therapeutic from Products of Conception, Via Natural or Artificial Opening (ICD-10-PCS; 2018-12-21)
PROC: 3E0234Z Introduction of Serum, Toxoid and Vaccine into Muscle, Percutaneous Approach (ICD-10-PCS; 2018-12-22)
DX: O80 Encounter for full-term uncomplicated delivery (principal); Z56.0 Unemployment, unspecified; Z37.0 Single live birth; Z3A.39 39 weeks gestation of pregnancy; Z88.0 Allergy status to penicillin; Z23 Encounter for immunization
CPT/HCPCS: 36415; 59025; 85014; 85018; 85027; 86592; 86850; 86900; 86901; 90715; G0378; J3010; J7120